=== PATIENT | male | born 1990 | race Two or more races ===

== ENCOUNTER 2024-02-15 11:09 | Outpatient (AMB) | payer OTHER, SELFPAY ==
--- NOTE | 2024-02-15 11:23 | PD.GSCLVISIT ---
Vital Signs - [facility] 02/15/24 11:25 Height 1.73 m Height Method Stated Weight 66.706 kg Weight Measurement Method Standing Scale BMI 22.3 BP 151/82 H Blood Pressure Source Automatic Cuff Blood Pressure Location Right Upper Arm Position Sitting Respiration 18 Pulse 70 Pulse Source Monitor Temp 98.6 F Temp Source Temporal Artery Scan Pulse Oximetry (%) 97 Oxygen Delivery Method Room Air Med/Allergies Allergies & Medications Allergies No Known Allergies Allergy (Unknown, Uncoded 02/15/24 11:26) Medication Reconciliation fluconazole 150 mg tablet 150 mg PO Q3D 3 doses #3 tabs 11/19/23 [Rx Confirmed 02/15/24] ketoconazole 2 % topical cream 1 applic topical BID #30 grams 11/19/23 [Rx Confirmed 02/15/24] permethrin 5 % topical cream 1 applic topical Q14D 2 doses #60 grams 11/19/23 [Rx Confirmed 02/15/24] acetaminophen 325 mg capsule (Tylenol) 650 mg (2 x 325 mg) PO TID PRN pain #20 caps 01/13/24 [Rx Confirmed 02/15/24] MA Intake Visit Data Collection New Patient or Established: Established Patient (seen at [facility] within 3 years) Reason for Visit:: REFERRAL HEMORRHOIDS Pain Present Currently: Yes Pain Location: Rectum Pain scale:: 9 Siebel Consultant Required: No PCP or OBGYN visit in last 3 months: Yes Hx Now: No Do You Feel Safe at Home: Yes Authorities Contacted: N/A Smoking Status Smoking Status: Never smoker Immunization / Flu Flu Vaccine in the Last 12 Months: No Flu Vaccine Exclusion Criteria: No Exclusion Criteria Past Medical History Past Medical History CARDIAC: Negative Cardiac Disorders RESPIRATORY: Negative Asthma GENITOURINARY: Negative Renal Disease ENDOCRINE: Negative Diabetes Mellitus Type 2 HEMATOLOGIC: Negative Sickle Cell Disease Social History SMOKING STATUS: Smoking status: Never smoker ALCOHOL: Alcohol Intake: Never HPI HPI Narrative 33M referred for perianal pain. Pt reports for the past 2 years he has been having symptoms, with perianal discomfort, occasional itching and small volume bleeding with wiping. He states his BMs tend to be regular, usually 2-3 times per day, soft and formed, not requiring any straining and only sometimes loose in nature. Additionally pt has had a rash in the area at times for which he was prescribed betamethasone by a drainage design coordinator and advised to use it for one month. Pt feels his skin in the area is becoming thinner. He denies any change in bowel habits, blood in stool, anorexia and unintentional weight loss, and has not had a colonoscopy PMH: Costochondritis PSHx: Excision of skin lesion Meds: A+D ointment Allergies: NKDA Social hx: Nonsmoker Family hx: No known malignancy ROS Review of Systems Systems Reviewed: All systems reviewed, normal except as documented Objective/Exam General General Appearance: alert, cooperative and well groomed Resp Respiratory exam: Absent respiratory distress Rectal Rectal exam: Present other (mild erythema of the perianal region, tender, no fluctuance, no drainage. No external hemorrhoids, TIKI normal, small internal hemorrhoids on anoscopy) Assessment & Plan Diagnosis / Problem List (1) Perianal dermatitis: Status: Acute Assessment & Plan: 33M referred for perianal discomfort with findings of perianal dermatitis on exam. At the moment he does not have any external hemorrhoids and his internal hemorrhoids are minimal; given his description of symptoms it seems most likely the dermatitis is the culprit. Pt had been using betamethasone cream to the area for the past month but discontinued it 3 days ago; I advised him to continue holding it and to use desitin cream daily. All questions were answered and pt is agreeable to follow up in 4 weeks Office Procedures GNS Level of Care Nursing/Assessment Patient Status: Established Patient Nursing Assessment/Reassesment: Medication Reconciliation, Update PMH in EMR and Vital Signs Coordination of Care: Complex Care and Chronic Disease 1-5, Education Complex Pt/Fam, Consent,records obtained, informed consent, Results/Orders obtained and Staff clarify orders Established Patient Charge Established Patient Point Assignment: 95 Established Patient Point Charge: EP Level 3 (80-115) Patient Portal Questionaires Social History Tobacco History Smoking Status: Never smoker Alcohol History Alcohol Intake: Never Domestic Abuse History Do You Feel Safe at Home: Yes Review of Systems Report any current symptoms Only answer those that you have currently: Past Medical History Past Medical History Have you ever been diagnosed with any of the following: Respiratory Problems Asthma: No Genital/Urinary Problems Renal Disease: No Endocrine Problems Diabetes Mellitus Type 2: No Blood Problems Sickle Cell Disease: No
[2024-02-15 11:25] VITALS: BP 151/82; PULSE 70; RESP 18; TEMP 37; O2SAT 97; BMI 22.3
== END 2024-02-15 12:19 | disposition home or self-care (01) ==
PROVIDERS: Supervising Provider Surgery; Visit Provider Surgery
DX: L30.8 Other specified dermatitis (principal); K64.8 Other hemorrhoids
CPT/HCPCS: 99213; G0463

== ENCOUNTER 2024-03-20 10:40 | Outpatient (AMB) | payer OTHER, SELFPAY ==
[2024-03-20 10:46] VITALS: BP 128/97; PULSE 80; RESP 18; TEMP 36.6; O2SAT 96; BMI 22.8
--- NOTE | 2024-03-20 10:46 | ACNOTE_ITS ---
Vital Signs 03/20/24 10:46 Height 1.7 m Height Method Stated Weight 66.281 kg Weight Measurement Method Standing Scale BMI 22.8 BP 128/97 H Blood Pressure Source Automatic Cuff Blood Pressure Location Left Upper Arm Position Sitting Respiration 18 Pulse 80 Pulse Source Monitor Temp 97.8 F Temp Source Temporal Artery Scan Pulse Oximetry (%) 96 Oxygen Delivery Method Room Air Allergies/Meds Allergies & Medications Allergies No Known Allergies Allergy (Unknown, Uncoded 03/20/24 10:47) Medication Reconciliation fluconazole 150 mg tablet 150 mg PO Q3D 3 doses #3 tabs 11/19/23 [Rx Confirmed 03/20/24] ketoconazole 2 % topical cream 1 applic topical BID #30 grams 11/19/23 [Rx Confirmed 03/20/24] permethrin 5 % topical cream 1 applic topical Q14D 2 doses #60 grams 11/19/23 [Rx Confirmed 03/20/24] acetaminophen 325 mg capsule (Tylenol) 650 mg (2 x 325 mg) PO TID PRN pain #20 caps 01/13/24 [Rx Confirmed 03/20/24] pantoprazole 40 mg tablet,delayed release 40 mg PO QDAY 1 month #30 tabs 03/20/24 [Rx] MA Intake Visit Data Collection New Patient or Established: Established Patient (seen at [facility] within 3 years) Reason for Visit:: abdominal pain x 2 months Pain Present Currently: Yes Pain Location: Abdomen Pain scale:: 4 Pain Scale Used: Byrnes-Dumont/Numerical PCP or OBGYN visit in last 3 months: No Do You Feel Safe at Home: Yes Authorities Contacted: N/A Smoking Status Smoking Status: Never smoker Immunization / Flu Flu Vaccine in the Last 12 Months: No Flu Vaccine Exclusion Criteria: No Exclusion Criteria Past Medical History Past Medical History CARDIAC: Negative Cardiac Disorders RESPIRATORY: Negative Asthma GENITOURINARY: Negative Renal Disease ENDOCRINE: Negative Diabetes Mellitus Type 2 HEMATOLOGIC: Negative Sickle Cell Disease Social History SMOKING STATUS: Smoking status: Never smoker ALCOHOL: Alcohol Intake: Never Patient Portal Questionaires Social History Tobacco History Smoking Status: Never smoker Alcohol History Alcohol Intake: Never Domestic Abuse History Do You Feel Safe at Home: Yes Review of Systems Report any current symptoms Only answer those that you have currently: Past Medical History Past Medical History Have you ever been diagnosed with any of the following: Respiratory Problems Asthma: No Genital/Urinary Problems Renal Disease: No Endocrine Problems Diabetes Mellitus Type 2: No Blood Problems Sickle Cell Disease: No History of Present Illness HPI Narrative 33-year-old male with PMHx of psoriasis, and history of costochondritis, presenting with a chief complaint of abdominal discomfort. He reports abdominal discomfort, bloating, and occasional burning sensation over the last month. Gr adual onset pain, waxes and wanes, or in the epigastrium, nonradiating, not associated with eating, without associated GI symptoms such as N/V/D/C or GI bleed. He is recently in [place] and was taken charcoal pill to help with the bloating that he has. He reports previously taking ASPIRIN for costochondritis which he stopped taking few months ago. No previous similar symptoms. Denies fever, chills, recent illnessl, headaches, dizziness, abnormal weight loss or gain, abnormal bleed, dysuria or polyuria. Objective/Exam Narrative Physical exam: GENERAL * Normal-appearing adult male, NAD HEENT * NCAT.?RENETTA. Oral mucosa is moist. Patent Nares NECK * Supple, nontender, no thyromegaly, no meningismus, no JVD, no step offs CHEST * RRR, no m/g/r * CTAB, no w/r/r. Symmetrical chest rise. No intercostal subcostal retraction * Atraumatic, nontender, no crepitus, symmetrical expansion. ABDOMEN * Soft, flat, nontender. No guarding/rebound tenderness/masses. * Bowel sounds presents EXTREMITIES * Nontender, no cyanosis, no edema * No edema/cyanosis.? SKIN * Warm and dry, no jaundice. Small psoriasis rash of left knee. NEUROMUSCULAR * No lumbar or midline, no CVA, no paraspinal muscle spasm or tenderness. * Moves all 4 extremities well, with full ROM and good CSM. * TOBAR x4, CN II-XII grossly intact. * No focal neurologic deficits. PSYCHIATRY * Normal mood and affect, cooperative, no SI or HI or hallucinations. Assessment & Plan Diagnosis / Problem List (1) Abdominal pain: Status: Acute Qualifiers: Abdominal location: epigastric Qualified Code(s): R10.13 - Epigastric pain Assessment & Plan: Patient presenting with vague abdominal pain x 1 month. Describes the pain as discomfort, not associated with meals, not associated with N/V/D/C. No abnormal weight loss, GI bleed, chest pain, shortness of breath, fever or chills. No sick exposure. No food allergies. He has tried charcoal pills that he picked up from [place] which helped with the pain. He history of NSAID use. Symptom concerning for peptic ulcer disease. Plan: ? Started OMEPRAZOLE for 1 month. ? Recommended GAS-X daily. ? Avoid foods with inflammatory properties. ? Ordered CBC to rule out bleed, CMP to rule out hepatic or renal pathology. ? Follow-up in 1 month ? Consider abdominal imaging if symptoms persist, worsen or do not improve. ? Recommended Emergency Room if symptoms persist, worsen, or new symptoms develop. (2) Psoriasis: Status: Acute Assessment & Plan: Diagnosis 6 months ago. Follows up with dermatology. Exam shows small psoriasis rash of the left knee. Plan: ? Continue using PERMETHRIN as prescribed. ? Continue follow-up with dermatology Orders: Orders Comprehensive Metabolic Panel Today K21.9 - Gastro-esophageal reflux disease without esophagitis CBC Today K21.9 - Gastro-esophageal reflux disease without esophagitis, R10.9 - Unspecified abdominal pain Calprotectin, Stool* Today K21.9 - Gastro-esophageal reflux disease without esophagitis Office Procedures [facility] Level of Care Nursing/Assessment Patient Status: Established Patient Nursing Assessment/Reassessment: Medication Reconciliation, Update PMH in EMR and Vital Signs Coordination of Care: Complex Care and Chronic Disease 1-5, Education Simp Pt/Fam and Staff clarify orders Established Patient Charge Established Patient Point Assignment: 80 Established Patient Point Charge: EP Level 3 (80-115)
== END 2024-03-20 11:28 | disposition home or self-care (01) ==
LOC: HODAHC 10:40
PROVIDERS: Supervising Provider Internal Medicine
DX: R10.13 Epigastric pain (principal)
CPT/HCPCS: 99213; G0463

== ENCOUNTER 2024-03-21 14:52 | Outpatient (AMB) | payer OTHER, SELFPAY ==
[2024-03-21 15:06] VITALS: BP 165/90; PULSE 88; RESP 19; TEMP 36.9; O2SAT 95; BMI 23.3
--- NOTE | 2024-03-21 15:06 | PD.GSCLVISIT ---
Vital Signs - [facility] 03/21/24 15:06 Height 1.7 m Height Method Stated Weight 67.302 kg Weight Measurement Method Standing Scale BMI 23.3 BP 165/90 H Blood Pressure Source Automatic Cuff Blood Pressure Location Left Upper Arm Position Sitting Respiration 19 Pulse 88 Pulse Source Monitor Temp 98.4 F Temp Source Temporal Artery Scan Pulse Oximetry (%) 95 Oxygen Delivery Method Room Air Med/Allergies Allergies & Medications Allergies No Known Allergies Allergy (Unknown, Uncoded 03/21/24 15:08) Medication Reconciliation fluconazole 150 mg tablet 150 mg PO Q3D 3 doses #3 tabs 11/19/23 [Rx Confirmed 03/21/24] ketoconazole 2 % topical cream 1 applic topical BID #30 grams 11/19/23 [Rx Confirmed 03/21/24] permethrin 5 % topical cream 1 applic topical Q14D 2 doses #60 grams 11/19/23 [Rx Confirmed 03/21/24] acetaminophen 325 mg capsule (Tylenol) 650 mg (2 x 325 mg) PO TID PRN pain #20 caps 01/13/24 [Rx Confirmed 03/21/24] pantoprazole 40 mg tablet,delayed release 40 mg PO QDAY 1 month #30 tabs 03/20/24 [Rx Confirmed 03/21/24] clotrimazole 1 % topical cream 1 applic topical BID 4 weeks #45 grams 03/21/24 [Rx] MA Intake Visit Data Collection New Patient or Established: Established Patient (seen at [facility] within 3 years) Seen by Clinical Staff ONLY (RN/MA): No Reason for Visit:: FOLLOW UP Pain Present Currently: No Plasma Center Nurse Required: No PCP or OBGYN visit in last 3 months: Yes Hx Now: No Do You Feel Safe at Home: Yes Authorities Contacted: N/A Smoking Status Smoking Status: Never smoker Immunization / Flu Flu Vaccine in the Last 12 Months: No Flu Vaccine Exclusion Criteria: No Exclusion Criteria Past Medical History Past Medical History CARDIAC: Negative Cardiac Disorders RESPIRATORY: Negative Asthma GENITOURINARY: Negative Renal Disease ENDOCRINE: Negative Diabetes Mellitus Type 2 HEMATOLOGIC: Negative Sickle Cell Disease Social History SMOKING STATUS: Smoking status: Never smoker ALCOHOL: Alcohol Intake: Never HPI HPI Narrative 33M here for follow up of perianal pain. At last visit pt reported he had stopped using clotrimazole-betamethasone creame that had been prescribed by dermatology; he was off it for a few weeks but then noted the perianal bumps, pain and itching returned so he began reapplying the cream and felt that it helped. He is additionally using nystatin powder and sometimes using lotrimin cream. In the meantime he also underwent biopsy of right lower leg lesions which came back as psoriasis, and went to his PCP for upper abdominal pain for which stool studies are pending but he began omeprazole Pt states his BMs are regular, he usually goes 1-2 times per day but sometimes 3-4, with soft BMs not requiring any straining. He does state that he sometimes feels he is passing shards of glass during defecation ROS Review of Systems Systems Reviewed: All systems reviewed, normal except as documented Objective/Exam General General Appearance: alert, cooperative and well groomed Resp Respiratory exam: Absent respiratory distress Assessment & Plan Diagnosis / Problem List (1) Perianal dermatitis: Status: Acute Assessment & Plan: 33M with several month history of perianal pain and itching, with exam findings consistent with dermatitis. Pt had been awaiting rx for clotrimazole from his clinical psychology professor, requested I resend to another pharmacy; he would also like to try compound cream for his intermittent severe perianal pain F/u in 4 weeks Office Procedures GNS Level of Care Nursing/Assessment Patient Status: Established Patient Nursing Assessment/Reassesment: Medication Reconciliation, Update PMH in EMR and Vital Signs Coordination of Care: Complex Care and Chronic Disease 1-5, Consent,records obtained, informed consent, Education Simp Pt/Fam, Results/Orders obtained and Staff clarify orders Established Patient Charge Established Patient Point Assignment: 90 Established Patient Point Charge: EP Level 3 (80-115) Patient Portal Questionaires Social History Tobacco History Smoking Status: Never smoker Alcohol History Alcohol Intake: Never Domestic Abuse History Do You Feel Safe at Home: Yes Review of Systems Report any current symptoms Only answer those that you have currently: Past Medical History Past Medical History Have you ever been diagnosed with any of the following: Respiratory Problems Asthma: No Genital/Urinary Problems Renal Disease: No Endocrine Problems Diabetes Mellitus Type 2: No Blood Problems Sickle Cell Disease: No
== END 2024-03-21 15:57 | disposition home or self-care (01) ==
LOC: HODSRG 14:52
PROVIDERS: Supervising Provider Surgery; Visit Provider Surgery
DX: L30.9 Dermatitis, unspecified (principal)
CPT/HCPCS: 99213; G0463

== ENCOUNTER → 2024-03-21 | Outpatient (CLI) | payer OTHER, SELFPAY ==
[2024-03-21 12:25] LABS: Basophils # (Auto) 0.1 Thou/mm3 (0.0-0.2); Basophils % (Auto) 1 % (0-2.5); Eosinophils % (Auto) 0 % (0-10); Hematocrit 44.6 % (41.0-53.0); Hemoglobin 15.4 g/dL (13.5-16.0); Immature Granulocytes % (Auto) 1 % (0-0); Immature Granulocytes Auto 0.07 Thou/mm3 (0.00-0.00); Lymphocytes # (Auto) 1.3 Thou/mm3 (1.0-4.8); Lymphocytes % (Auto) 14 % (10-50); Mean Corpuscular HGB Conc 34.5 g/dl (31.0-37.0); Mean Corpuscular Volume 87 fL (80-100); Monocytes # (Auto) 0.6 Thou/mm3 (0.0-0.8); Monocytes % (Auto) 6 % (0-12); Neutrophils # (Auto) 6.9 Thou/mm3 (1.8-7.7); Neutrophils % (Auto) 78 % (37-80); Nucleated Red Blood Cell % 0 /100 WBC (0); Platelet Count 242 Thou/mm3 (140-440); RDW Standard Deviation 38.5 fL (35.1-43.9); Red Blood Count 5.13 Miln/mm3 (4.50-5.90); White Blood Count 8.8 Thou/mm3 (3.8-10.6)
[2024-03-21 12:39] LABS: Alanine Aminotransferase 30 U/L (10-49); Albumin, Serum 5.1 gm/dL (3.5-5.0); Albumin/Globulin Ratio 2.2 (1.2-2.2); Alkaline Phosphatase 72 U/L (46-116); Anion Gap 8 (7-16); Aspartate Amino Transferase 28 U/L (0-34); BUN/Creatinine Ratio 21 Ratio (12-20); Bilirubin,Total 0.6 mg/dL (0.3-1.2); Blood Urea Nitrogen 19 mg/dL (9-23); Calcium 9.7 mg/dL (8.3-10.6); Calcium (Corrected) 9.7 mg/dL (8.5-10.1); Chloride 101 mMol/L (98-107); Creatinine (Component) 0.9 mg/dL (0.6-1.3); Globulin 2.3 gm/dL (2.3-3.5); Glucose 84 mg/dL (74-106); Osmolality,Calculated 276 (275-295); Potassium 4.3 mMol/L (3.4-5.1); Sodium 138 mMol/L (136-145); Total Protein 7.4 gm/dL (5.7-8.2); eGFR > 60 See Note
== END | disposition home or self-care (01) ==
LOC: COPL 11:06
PROVIDERS: PCP Student in an Organized Health Care Education/Training Program; Referring Provider Student in an Organized Health Care Education/Training Program; Visit Provider Student in an Organized Health Care Education/Training Program
DX: K21.9 Gastro-esophageal reflux disease without esophagitis (principal); R10.9 Unspecified abdominal pain
CPT/HCPCS: 36415; 80053; 85025

== ENCOUNTER → 2024-03-22 | Outpatient (CLI) | payer OTHER, SELFPAY ==
[2024-03-28 06:54] LABS: Calprotectin, Stool* 57 mcg/g
== END | disposition home or self-care (01) ==
LOC: SLDO 11:36
PROVIDERS: Referring Provider Student in an Organized Health Care Education/Training Program; Visit Provider Student in an Organized Health Care Education/Training Program
DX: K21.9 Gastro-esophageal reflux disease without esophagitis (principal)
CPT/HCPCS: 83993

== ENCOUNTER 2024-03-26 09:52 | Outpatient (AMB) | payer OTHER, SELFPAY ==
[2024-03-26 10:01] VITALS: BP 131/79; PULSE 82; RESP 18; TEMP 36.3; O2SAT 99; BMI 23.4
--- NOTE | 2024-03-26 10:01 | PD.RESCLINIC ---
Vital Signs 03/26/24 10:01 Height 1.7 m Height Method Stated Weight 67.755 kg Weight Measurement Method Standing Scale BMI 23.4 BP 131/79 H Blood Pressure Source Automatic Cuff Blood Pressure Location Left Upper Arm Position Sitting Respiration 18 Pulse 82 Pulse Source Monitor Temp 97.3 F Temp Source Oral Pulse Oximetry (%) 99 Oxygen Delivery Method Room Air Allergies/Meds Allergies & Medications Allergies No Known Allergies Allergy (Unknown, Uncoded 04/02/24 10:30) Medication Reconciliation fluconazole 150 mg tablet 150 mg PO Q3D 3 doses #3 tabs 11/19/23 [Rx Confirmed 04/02/24] ketoconazole 2 % topical cream 1 applic topical BID #30 grams 11/19/23 [Rx Confirmed 04/02/24] permethrin 5 % topical cream 1 applic topical Q14D 2 doses #60 grams 11/19/23 [Rx Confirmed 04/02/24] acetaminophen 325 mg capsule (Tylenol) 650 mg (2 x 325 mg) PO TID PRN pain #20 caps 01/13/24 [Rx Confirmed 04/02/24] pantoprazole 40 mg tablet,delayed release 40 mg PO QDAY 1 month #30 tabs 03/20/24 [Rx Confirmed 04/02/24] clotrimazole 1 % topical cream 1 applic topical BID 4 weeks #45 grams 03/21/24 [Rx Confirmed 04/02/24] MA Intake Visit Data Collection New Patient or Established: Established Patient (seen at [facility] within 3 years) Seen by Clinical Staff ONLY (RN/MA): No Pain Present Currently: No Pain scale:: 0 Pain Scale Used: Byrnes-Dumont/Numerical Sergeant Missile Crewman Required: No PCP or OBGYN visit in last 3 months: Yes Do You Feel Safe at Home: Yes Authorities Contacted: N/A Smoking Status Smoking Status: Never smoker Immunization / Flu Flu Vaccine in the Last 12 Months: No Flu Vaccine Exclusion Criteria: No Exclusion Criteria Past Medical History Past Medical History CARDIAC: Negative Cardiac Disorders RESPIRATORY: Negative Asthma GENITOURINARY: Negative Renal Disease ENDOCRINE: Negative Diabetes Mellitus Type 2 HEMATOLOGIC: Negative Sickle Cell Disease Social History SMOKING STATUS: Smoking status: Never smoker ALCOHOL: Alcohol Intake: Never Patient Portal Questionaires Social History Tobacco History Smoking Status: Never smoker Alcohol History Alcohol Intake: Never Domestic Abuse History Do You Feel Safe at Home: Yes Review of Systems Report any current symptoms Only answer those that you have currently: Past Medical History Past Medical History Have you ever been diagnosed with any of the following: Respiratory Problems Asthma: No Genital/Urinary Problems Renal Disease: No Endocrine Problems Diabetes Mellitus Type 2: No Blood Problems Sickle Cell Disease: No History of Present Illness HPI Narrative A 33-year-old male patient with past medical history of psoriasis, costochondritis, came to the clinic today due to persistent abdominal discomfort, bloating, diarrhea, for 2 months. He reported that he came previously and he was given omeprazole however it did not help with his symptoms. Patient denied any fever or chills denied any shortness of breath. Denied any bleeding per rectum however he reported that he has dermatitis in the perineal area in which she is following up with a urban forester. He reported that he was recently diagnosed with psoriasis however he mentioned that the current urban forester does not seems to be aware of his medications or knowledgeable of his condition and he requested to be transferred to another urban forester. He reported that also one of the main reasons is his perianal area was not examined in which keeps irritating him with continuous itching. In review of patient's medication he was noticed to be taking multiple ointment that contain steroids in addition to his psoriasis medications, he mentions that even though he talk to his urban forester that he is taking steroids preparations his urban forester was only focused on the psoriasis that he prescribed him and did not tell him to stop or to continue his steroid medications. Review of Systems Review of Systems Systems Reviewed: All systems reviewed, normal except as documented Objective/Exam General General Appearance: alert, in no apparent distress, comfortable, cooperative, healthy appearing, well developed and well groomed Head Head exam: atraumatic, normocephalic and normal inspection Neck Neck exam: Present normal inspection, full ROM and trachea midline Chest Chest inspection: Present normal inspection and symmetric chest wall rise Resp Respiratory exam: Present normal lung sounds bilaterally Card Cardiovascular exam: Present regular rate, normal rhythm and normal heart sounds Abdominal Abdominal exam: Present soft and normal bowel sounds Extremities Extremities exam: Present normal inspection and full ROM Back Back exam: Present normal inspection and full ROM Psych Psychiatric exam: Present normal affect and normal mood Skin Skin exam: Present warm, dry, normal color and rash (Small multiple hyperkeratotic lesions mostly on the extensor surface of the knee and ankles.) Assessment & Plan Diagnosis / Problem List (1) Psoriasis: Status: Acute Plan: ? Refer patient to another urban forester ? Avoid stress or anxiety, if needed referral to psychotherapist to decrease the risk of flares for psoriasis (2) Chronic diarrhea: Status: Acute Plan: ? ESR and CRP ? transglutaminase antibodies, Endomisial antibodies, Gliadin antibodies ? Stool Giardia, culture and sensitivity ? Stop pantoprazole (3) Abdominal pain: Status: Acute Qualifiers: Abdominal location: epigastric Qualified Code(s): R10.13 - Epigastric pain Plan: As above (4) Perianal dermatitis: Status: Acute Plan: As above, will refer the patient to urban forester. Orders: Orders hs-CRP* 03/26/24 L40.9 - Psoriasis, unspecified Gliadin (Deamidated) IgA&G* 03/26/24 K52.9 - Noninfective gastroenteritis and colitis, unspecified, L40.9 - Psoriasis, unspecified, R10.13 - Epigastric pain MARTITA IFA Screen w/refl, IFA* 03/26/24 K52.9 - Noninfective gastroenteritis and colitis, unspecified, L40.9 - Psoriasis, unspecified, R10.13 - Epigastric pain Giardia Antigen, EIA, Stool* 03/26/24 K52.9 - Noninfective gastroenteritis and colitis, unspecified, R10.13 - Epigastric pain Stool Culture 03/26/24 K52.9 - Noninfective gastroenteritis and colitis, unspecified, L40.9 - Psoriasis, unspecified, R10.13 - Epigastric pain Sed Rate (ESR) 03/26/24 L40.9 - Psoriasis, unspecified Tissue Transglutaminase Abs* 03/26/24 K52.9 - Noninfective gastroenteritis and colitis, unspecified, R10.13 - Epigastric pain Endomysial IgA w Reflx Titer* 03/26/24 K52.9 - Noninfective gastroenteritis and colitis, unspecified, L40.9 - Psoriasis, unspecified, R10.13 - Epigastric pain DNA (ds) Antibody* 03/26/24 K52.9 - Noninfective gastroenteritis and colitis, unspecified, L40.9 - Psoriasis, unspecified, R10.13 - Epigastric pain Referrals Dermatology L30.9 - Dermatitis, unspecified, L40.9 - Psoriasis, unspecified Office Procedures [facility] Level of Care Nursing/Assessment Patient Status: Established Patient Nursing Assessment/Reassessment: Medication Reconciliation, Update PMH in EMR and Vital Signs Coordination of Care: Complex Care and Chronic Disease 1-5, Consent,records obtained, informed consent, Education Simp Pt/Fam, Results/Orders obtained and Staff clarify orders Established Patient Charge Established Patient Point Assignment: 90 Established Patient Point Charge: EP Level 3 (80-115)
== END 2024-03-26 11:34 | disposition home or self-care (01) ==
LOC: HODAHC 09:52
PROVIDERS: PCP Student in an Organized Health Care Education/Training Program; Referring Provider Student in an Organized Health Care Education/Training Program; Supervising Provider Internal Medicine; Visit Provider Student in an Organized Health Care Education/Training Program
DX: L40.9 Psoriasis, unspecified (principal); K52.9 Noninfective gastroenteritis and colitis, unspecified; L30.9 Dermatitis, unspecified; R10.13 Epigastric pain
CPT/HCPCS: 99213; G0463

== ENCOUNTER → 2024-03-26 | Outpatient (CLI) | payer OTHER, SELFPAY ==
[2024-03-26 13:14] LABS: Sed Rate (ESR) 5 mm/hr (0-15)
[2024-04-05 06:56] LABS: (tTG) Ab, IgA <1.0 U/mL; (tTG) Ab, IgG <1.0 U/mL; ANA Pattern NUCLEAR, SPECKLED; ANA Screen, IFA POSITIVE (NEGATIVE); ANA Titer 1:40 titer; DNA (ds) Antibody* 2 IU/mL; Endomysial Ab IgA NEGATIVE (NEGATIVE); Gliadin(Deamidated)Ab,IgA <1.0 U/mL; Gliadin(Deamidated)Ab,IgG <1.0 U/mL; hs-CRP* 1.1 mg/L
== END | disposition home or self-care (01) ==
LOC: COPL 12:27
PROVIDERS: PCP Student in an Organized Health Care Education/Training Program; Referring Provider Student in an Organized Health Care Education/Training Program; Visit Provider Student in an Organized Health Care Education/Training Program
DX: L40.9 Psoriasis, unspecified (principal); K52.9 Noninfective gastroenteritis and colitis, unspecified; R10.13 Epigastric pain
CPT/HCPCS: 36415; 85652; 86038; 86141; 86225; 86231; 86258; 86364

== ENCOUNTER → 2024-03-27 | Outpatient (CLI) | payer OTHER, SELFPAY ==
[2024-04-01 07:00] LABS: Giardia Result NOT DETECTED
== END | disposition home or self-care (01) ==
LOC: SLDO 12:19
PROVIDERS: Referring Provider Student in an Organized Health Care Education/Training Program; Visit Provider Student in an Organized Health Care Education/Training Program
DX: K52.9 Noninfective gastroenteritis and colitis, unspecified (principal); L40.9 Psoriasis, unspecified; R10.13 Epigastric pain
CPT/HCPCS: 87015; 87045; 87046; 87329; 87899

== ENCOUNTER 2024-04-02 10:09 | Outpatient (AMB) | payer OTHER, SELFPAY ==
[2024-04-02 10:29] VITALS: BP 123/82; PULSE 90; RESP 18; TEMP 36.6; O2SAT 99; BMI 23.2
--- NOTE | 2024-04-02 10:29 | PD.RESCLINIC ---
Vital Signs 04/02/24 10:29 Height 1.7 m Height Method Stated Weight 67.188 kg Weight Measurement Method Standing Scale BMI 23.2 BP 123/82 Blood Pressure Source Automatic Cuff Blood Pressure Location Left Upper Arm Position Sitting Respiration 18 Pulse 90 Pulse Source Monitor Temp 97.8 F Temp Source Oral Pulse Oximetry (%) 99 Oxygen Delivery Method Room Air Allergies/Meds Allergies & Medications Allergies No Known Allergies Allergy (Unknown, Uncoded 04/02/24 10:30) Medication Reconciliation fluconazole 150 mg tablet 150 mg PO Q3D 3 doses #3 tabs 11/19/23 [Rx Confirmed 04/02/24] ketoconazole 2 % topical cream 1 applic topical BID #30 grams 11/19/23 [Rx Confirmed 04/02/24] permethrin 5 % topical cream 1 applic topical Q14D 2 doses #60 grams 11/19/23 [Rx Confirmed 04/02/24] acetaminophen 325 mg capsule (Tylenol) 650 mg (2 x 325 mg) PO TID PRN pain #20 caps 01/13/24 [Rx Confirmed 04/02/24] pantoprazole 40 mg tablet,delayed release 40 mg PO QDAY 1 month #30 tabs 03/20/24 [Rx Confirmed 04/02/24] clotrimazole 1 % topical cream 1 applic topical BID 4 weeks #45 grams 03/21/24 [Rx Confirmed 04/02/24] MA Intake Visit Data Collection New Patient or Established: Established Patient (seen at [facility] within 3 years) Seen by Clinical Staff ONLY (RN/MA): No Pain Present Currently: No Pain scale:: 0 Pain Scale Used: Byrnes-Dumont/Numerical Mobile Ui/Ux Designer Required: No PCP or OBGYN visit in last 3 months: Yes Hx Now: No Do You Feel Safe at Home: Yes Authorities Contacted: N/A Smoking Status Smoking Status: Never smoker Immunization / Flu Flu Vaccine in the Last 12 Months: No Flu Vaccine Exclusion Criteria: No Exclusion Criteria Past Medical History Past Medical History CARDIAC: Negative Cardiac Disorders RESPIRATORY: Negative Asthma GENITOURINARY: Negative Renal Disease ENDOCRINE: Negative Diabetes Mellitus Type 2 HEMATOLOGIC: Negative Sickle Cell Disease Social History SMOKING STATUS: Smoking status: Never smoker ALCOHOL: Alcohol Intake: Never Patient Portal Questionaires Social History Tobacco History Smoking Status: Never smoker Alcohol History Alcohol Intake: Never Domestic Abuse History Do You Feel Safe at Home: Yes Review of Systems Report any current symptoms Only answer those that you have currently: Past Medical History Past Medical History Have you ever been diagnosed with any of the following: Respiratory Problems Asthma: No Genital/Urinary Problems Renal Disease: No Endocrine Problems Diabetes Mellitus Type 2: No Blood Problems Sickle Cell Disease: No History of Present Illness HPI Narrative A 33-year-old male patient with past medical history of psoriasis, costochondritis, came to the clinic today due to persistent abdominal discomfort, bloating, diarrhea, for 2 months. He reported that he came previously and he was given omeprazole however it did not help with his symptoms. Patient denied any fever or chills denied any shortness of breath. Denied any bleeding per rectum however he reported that he has dermatitis in the perineal area in which she is following up with a legal administrative assistant. He reported that he was recently diagnosed with psoriasis however he mentioned that the current legal administrative assistant does not seems to be aware of his medications or knowledgeable of his condition and he requested to be transferred to another legal administrative assistant. He reported that also one of the main reasons is his perianal area was not examined in which keeps irritating him with continuous itching. In review of patient's medication he was noticed to be taking multiple ointment that contain steroids in addition to his psoriasis medications, he mentions that even though he talk to his legal administrative assistant that he is taking steroids preparations his legal administrative assistant was only focused on the psoriasis that he prescribed him and did not tell him to stop or to continue his steroid medications. 04/02/2024, patient was seen and examined at the office. Patient came today for labs follow-up. His stool culture and sensitivity came back negative for any pathological bacteria or E. coli. ESR came back 5 CRP still pending. Calprotectin came back at 57 which is undetermined. Patient reported that his abdominal symptoms has somehow improved after he stopped taking the topical psoriasis medications. He reported that his bloating has improved however his frequent bowel movements still the same and he still has 3 or more bowel movements per day. He reported that even these symptoms has not improved however his bloating and abdominal discomfort has improved after he stopped the topical psoriasis medications. He still waiting for appointment with his new legal administrative assistant. Review of Systems Review of Systems Systems Reviewed: All systems reviewed, normal except as documented Objective/Exam General General Appearance: alert, in no apparent distress, comfortable, cooperative, healthy appearing, well developed and well groomed Head Head exam: atraumatic, normocephalic and normal inspection Neck Neck exam: Present normal inspection, full ROM and trachea midline Chest Chest inspection: Present normal inspection and symmetric chest wall rise Resp Respiratory exam: Present normal lung sounds bilaterally Card Cardiovascular exam: Present regular rate, normal rhythm and normal heart sounds Abdominal Abdominal exam: Present soft and normal bowel sounds Extremities Extremities exam: Present normal inspection and full ROM Back Back exam: Present normal inspection and full ROM Psych Psychiatric exam: Present normal affect and normal mood Skin Skin exam: Present warm, dry, normal color and rash (Small multiple hyperkeratotic lesions mostly on the extensor surface of the knee and ankles.) Assessment & Plan Diagnosis / Problem List (1) Psoriasis: Status: Acute Plan: ? Refer patient to a new legal administrative assistant in [place] ? Recommended the patient to continue his psoriasis medications topical once, however decrease the amount of the applied ointment and foam. ? Patient reported that he has been washing his hand and using gloves whenever he applies the cream and the phone. ? Instructed the patient to speak with his legal administrative assistant for other options for psoriasis medications if he believes that these are the cause of the symptoms until we get the final results for the immunological studies. (2) Chronic diarrhea: Status: Acute Assessment & Plan: ESR came back at 5 mg, ? Stool culture and sensitivity came back negative Giardia came back negative Calprotectin came back 57 which is undetermined Plan: ? Follow-up on the immunological study for celiac disease ? Follow-up on the CRP ? Follow-up on the [id number] antibodies ? If all results came back negative and the patient still have multiple episodes of diarrhea we may consider colonoscopy or referral to GI specialist. ? Patient reported that he has been washing his hand and using gloves whenever he applies the cream and the phone. ? Instructed the patient to speak with his legal administrative assistant for other options for psoriasis medications if he believes that these are the cause of the symptoms until we get the final results for the immunological studies. (3) Abdominal pain: Status: Acute Qualifiers: Abdominal location: epigastric Qualified Code(s): R10.13 - Epigastric pain Plan: As above (4) Perianal dermatitis: Status: Acute Plan: Pending appointment with a legal administrative assistant. Office Procedures [facility] Level of Care Nursing/Assessment Patient Status: Established Patient Nursing Assessment/Reassessment: Medication Reconciliation, Update PMH in EMR and Vital Signs Coordination of Care: Complex Care and Chronic Disease 1-5, Consent,records obtained, informed consent, Education Simp Pt/Fam, Results/Orders obtained and Staff clarify orders Established Patient Charge Established Patient Point Assignment: 90 Established Patient Point Charge: EP Level 3 (80-115)
== END 2024-04-02 11:27 | disposition home or self-care (01) ==
LOC: HODAHC 10:09
PROVIDERS: Supervising Provider Internal Medicine; Visit Provider Student in an Organized Health Care Education/Training Program
DX: L40.9 Psoriasis, unspecified (principal); K52.9 Noninfective gastroenteritis and colitis, unspecified; L30.9 Dermatitis, unspecified
CPT/HCPCS: 99213; G0463

== ENCOUNTER 2024-04-16 10:31 | Outpatient (AMB) | payer OTHER, SELFPAY ==
--- NOTE | 2024-04-16 10:34 | PD.RESCLINIC ---
Allergies/Meds Allergies & Medications Allergies No Known Allergies Allergy (Unknown, Uncoded 04/02/24 10:30) Medication Reconciliation fluconazole 150 mg tablet 150 mg PO Q3D 3 doses #3 tabs 11/19/23 [Rx Confirmed 04/16/24] ketoconazole 2 % topical cream 1 applic topical BID #30 grams 11/19/23 [Rx Confirmed 04/16/24] permethrin 5 % topical cream 1 applic topical Q14D 2 doses #60 grams 11/19/23 [Rx Confirmed 04/16/24] acetaminophen 325 mg capsule (Tylenol) 650 mg (2 x 325 mg) PO TID PRN pain #20 caps 01/13/24 [Rx Confirmed 04/16/24] pantoprazole 40 mg tablet,delayed release 40 mg PO QDAY 1 month #30 tabs 03/20/24 [Rx Confirmed 04/16/24] clotrimazole 1 % topical cream 1 applic topical BID 4 weeks #45 grams 03/21/24 [Rx Confirmed 04/16/24] MA Intake Visit Data Collection New Patient or Established: Established Patient (seen at [facility] within 3 years) Seen by Clinical Staff ONLY (RN/MA): No Pain Present Currently: No Pain Scale Used: Byrnes-Dumont/Numerical Hvac Operations Technician Required: No PCP or OBGYN visit in last 3 months: Yes Hx Now: No Do You Feel Safe at Home: Yes Authorities Contacted: N/A Smoking Status Smoking Status: Never smoker For Televisit only Telemed Video/Phone Visit: Yes Telemed Video/Phone visit w/Clinical Staff: 21-30 min Immunization / Flu Flu Vaccine in the Last 12 Months: No Flu Vaccine Exclusion Criteria: No Exclusion Criteria Past Medical History Past Medical History CARDIAC: Negative Cardiac Disorders RESPIRATORY: Negative Asthma GENITOURINARY: Negative Renal Disease ENDOCRINE: Negative Diabetes Mellitus Type 2 HEMATOLOGIC: Negative Sickle Cell Disease Social History SMOKING STATUS: Smoking status: Never smoker ALCOHOL: Alcohol Intake: Never Patient Portal Questionaires Social History Tobacco History Smoking Status: Never smoker Alcohol History Alcohol Intake: Never Domestic Abuse History Do You Feel Safe at Home: Yes Review of Systems Report any current symptoms Only answer those that you have currently: Past Medical History Past Medical History Have you ever been diagnosed with any of the following: Respiratory Problems Asthma: No Genital/Urinary Problems Renal Disease: No Endocrine Problems Diabetes Mellitus Type 2: No Blood Problems Sickle Cell Disease: No History of Present Illness HPI Narrative A tele-visit was conducted to review patients Labs, His Celiac screening tests came back -ve, ESR WNL, Stool C/S came back negative for pathogenic bacteria, and it was negative for Giardia. Patient reported that he has avoided gluten contating productes however still has the same. No family hx of GI cancer, however he reported that has has been losing weight over the past few years and went down from 180 to 150IbL. Review of Systems Review of Systems Systems Reviewed: All systems reviewed, normal except as documented Objective/Exam Narrative Physical exam: N/A Assessment & Plan Diagnosis / Problem List (1) Chronic diarrhea: Status: Acute Plan: - Gi Referral to Dr Beatty. (2) GERD (gastroesophageal reflux disease): Status: Acute Qualifiers: Esophagitis presence: esophagitis presence not specified Qualified Code(s): K21.9 - Gastro-esophageal reflux disease without esophagitis (3) Abdominal pain: Status: Acute Qualifiers: Abdominal location: epigastric Qualified Code(s): R10.13 - Epigastric pain Orders: Referrals Gastroenterology K21.9 - Gastro-esophageal reflux disease without esophagitis, K52.9 - Noninfective gastroenteritis and colitis, unspecified, R10.13 - Epigastric pain Additional Assessment Internal Medicine Attending Note: Case discussed with and agree with note and management plan of Resident Physician as per Resident's Note above. Issues of concern for present visit are as follows: Telehealth visit for review of labs. Workup to this point has been essentially negative. Celiac panel negative. Stool cultures negative. Sedimentation rate normal. Patient empirically tried eliminating gluten from his diet but is still noting same bowel symptoms. Patient's weight loss over the last year noted. Referral made to gastroenterology for further workup of chronic diarrhea. [place] MD Physician Billing Established Patient Established Patient: E/M Level 2-CPT 11068 Office Procedures [facility] Level of Care Nursing/Assessment Patient Status: Established Patient Nursing Assessment/Reassessment: Medication Reconciliation and Update PMH in EMR Coordination of Care: Complex Care and Chronic Disease 1-5, Consent,records obtained, informed consent, Education Simp Pt/Fam and Staff clarify orders Established Patient Charge Established Patient Point Assignment: 70 Telehealth Telemed Phone/Video with patient at home & Dr,PA,STEAM BOX OPERATOR: Yes
== END 2024-04-16 11:15 | disposition home or self-care (01) ==
LOC: HODAHC 10:31
PROVIDERS: PCP Student in an Organized Health Care Education/Training Program; Referring Provider Student in an Organized Health Care Education/Training Program; Supervising Provider Internal Medicine; Visit Provider Student in an Organized Health Care Education/Training Program
DX: Z71.2 Person consulting for explanation of examination or test findings (principal); K21.9 Gastro-esophageal reflux disease without esophagitis; K52.9 Noninfective gastroenteritis and colitis, unspecified
CPT/HCPCS: 99212; G0463

== ENCOUNTER → 2024-04-22 | Outpatient (CLI) | payer OTHER, SELFPAY | END | disposition home or self-care (01) | PROVIDERS: PCP Student in an Organized Health Care Education/Training Program; Referring Provider Dermatology MOHS-Micrographic Surgery; Visit Provider Dermatology MOHS-Micrographic Surgery | DX: L40.0 Psoriasis vulgaris (principal); Z79.899 Other long term (current) drug therapy ==

== ENCOUNTER → 2024-04-23 | Outpatient (CLI) | payer OTHER, SELFPAY ==
[2024-04-23 10:31] LABS: Quantiferon-TB* See Sep Rpt
== END | disposition home or self-care (01) ==
LOC: COPL 10:06
PROVIDERS: PCP Student in an Organized Health Care Education/Training Program; Referring Provider Dermatology MOHS-Micrographic Surgery; Visit Provider Dermatology MOHS-Micrographic Surgery
DX: L40.0 Psoriasis vulgaris (principal); Z79.899 Other long term (current) drug therapy
CPT/HCPCS: 86480

== ENCOUNTER 2024-06-25 10:26 | Outpatient (AMB) | payer OTHER, SELFPAY ==
[2024-06-25 10:41] VITALS: BP 136/78; PULSE 76; RESP 16; TEMP 36.6; O2SAT 98; BMI 22.3
--- NOTE | 2024-06-25 10:41 | PD.RESCLINIC ---
Vital Signs 06/25/24 10:41 Height 1.7 m Height Method Stated Weight 64.467 kg Weight Measurement Method Standing Scale BMI 22.3 BP 136/78 H Blood Pressure Source Automatic Cuff Blood Pressure Location Left Upper Arm Position Sitting Respiration 16 Pulse 76 Pulse Source Monitor Temp 97.8 F Temp Source Temporal Artery Scan Pulse Oximetry (%) 98 Oxygen Delivery Method Room Air Allergies/Meds Allergies & Medications Allergies No Known Allergies Allergy (Unknown, Uncoded 06/25/24 10:42) Medication Reconciliation fluconazole 150 mg tablet 150 mg PO Q3D 3 doses #3 tabs 11/19/23 [Rx Confirmed 06/25/24] ketoconazole 2 % topical cream 1 applic topical BID #30 grams 11/19/23 [Rx Confirmed 06/25/24] permethrin 5 % topical cream 1 applic topical Q14D 2 doses #60 grams 11/19/23 [Rx Confirmed 06/25/24] acetaminophen 325 mg capsule (Tylenol) 650 mg (2 x 325 mg) PO TID PRN pain #20 caps 01/13/24 [Rx Confirmed 06/25/24] clotrimazole 1 % topical cream 1 applic topical BID 4 weeks #45 grams 03/21/24 [Rx Confirmed 06/25/24] clobetasol 0.05 % scalp solution 1 applic topical QDAY 2 weeks #25 mL 06/25/24 [Rx] dicyclomine 10 mg capsule 10 mg PO TID PRN abdominal pain #30 caps 06/25/24 [Rx] pantoprazole 40 mg tablet,delayed release 40 mg PO QDAY #30 tabs 06/25/24 [Rx] MA Intake Visit Data Collection New Patient or Established: Established Patient (seen at [facility] within 3 years) Seen by Clinical Staff ONLY (RN/MA): No Pain Present Currently: No Pain scale:: 0 Pain Scale Used: Byrnes-Dumont/Numerical Developer [employer] Required: No PCP or OBGYN visit in last 3 months: No Hx Now: No Do You Feel Safe at Home: Yes Authorities Contacted: N/A Smoking Status Smoking Status: Never smoker Immunization / Flu Flu Vaccine in the Last 12 Months: No Flu Vaccine Exclusion Criteria: No Exclusion Criteria Past Medical History Past Medical History CARDIAC: Negative Cardiac Disorders RESPIRATORY: Negative Asthma GENITOURINARY: Negative Renal Disease ENDOCRINE: Negative Diabetes Mellitus Type 2 HEMATOLOGIC: Negative Sickle Cell Disease Social History SMOKING STATUS: Smoking status: Never smoker ALCOHOL: Alcohol Intake: Never Patient Portal Shania Social History Tobacco History Smoking Status: Never smoker Alcohol History Alcohol Intake: Never Domestic Abuse History Do You Feel Safe at Home: Yes Review of Systems Report any current symptoms Only answer those that you have currently: Past Medical History Past Medical History Have you ever been diagnosed with any of the following: Respiratory Problems Asthma: No Genital/Urinary Problems Renal Disease: No Endocrine Problems Diabetes Mellitus Type 2: No Blood Problems Sickle Cell Disease: No History of Present Illness HPI Narrative A 33-year-old male patient with past medical history of psoriasis, costochondritis, came to the clinic today due to persistent abdominal discomfort, bloating, diarrhea, for 2 months. He reported that he came previously and he was given omeprazole however it did not help with his symptoms. Patient denied any fever or chills denied any shortness of breath. Denied any bleeding per rectum however he reported that he has dermatitis in the perineal area in which she is following up with a wheel filler. He reported that he was recently diagnosed with psoriasis however he mentioned that the current wheel filler does not seems to be aware of his medications or knowledgeable of his condition and he requested to be transferred to another wheel filler. He reported that also one of the main reasons is his perianal area was not examined in which keeps irritating him with continuous itching. In review of patient's medication he was noticed to be taking multiple ointment that contain steroids in addition to his psoriasis medications, he mentions that even though he talk to his wheel filler that he is taking steroids preparations his wheel filler was only focused on the psoriasis that he prescribed him and did not tell him to stop or to continue his steroid medications. 04/02/2024, patient was seen and examined at the office. Patient came today for labs follow-up. His stool culture and sensitivity came back negative for any pathological bacteria or E. coli. ESR came back 5 CRP still pending. Calprotectin came back at 57 which is undetermined. Patient reported that his abdominal symptoms has somehow improved after he stopped taking the topical psoriasis medications. He reported that his bloating has improved however his frequent bowel movements still the same and he still has 3 or more bowel movements per day. He reported that even these symptoms has not improved however his bloating and abdominal discomfort has improved after he stopped the topical psoriasis medications. He still waiting for appointment with his new wheel filler. 04/16/2024 A tele-visit was conducted to review patients Labs, His Celiac screening tests came back -ve, ESR WNL, Stool C/S came back negative for pathogenic bacteria, and it was negative for Giardia. Patient reported that he has avoided gluten contating productes however still has the same. No family hx of GI cancer, however he reported that has has been losing weight over the past few years and went down from 180 to 150IbL. 06/25/2024, patient came for follow-up for his GI symptoms. Patient reported significant improvement of his recurrent bowel movements, and he states he only has 1 BM per day. However, patient still complains of episodes mild epigastric abdominal pain, and also left-sided abdominal pain. On further questioning patient reported that he has some episodes of mouth ulcers that is very mild. patient denied any nausea or vomiting. He reported also significant improvement of his perianal itching he seen his GI specialist for the chronic abdominal pain and diarrhea. EGD and colonoscopy was done to rule out any malignancy or inflammatory bowel disorder. EGD was negative for any mass or ulcers however it showed mild antral inflammatory changes. Biopsy was taken and it was negative for any malignancy. Colonoscopy similarly was negative for any ulcers or masses. The GI specialist mentioned that we cannot rule out inflammatory bowel disease as the patient was started on Tremfya for his psoriasis which is also can affect the colonoscopy and the biopsy picture. His container crane operator also recommended for him to obtain supplemental enzymes in which he mention history and some improvement after he taking his enzymes. The patient reported that his wheel filler recommended him to continue on TREMFYA only for 4 doses. For that reason, we will keep monitoring the patient if he continue to experience GI symptoms and we may consider another referral to the GI for repeat colonoscopy if needed. Review of Systems Review of Systems Systems Reviewed: All systems reviewed, normal except as documented Objective/Exam General General Appearance: alert, in no apparent distress, comfortable, cooperative, healthy appearing, well developed and well groomed Head Head exam: atraumatic, normocephalic and normal inspection Exp ENT Mouth exam: Present normal external inspection Neck Neck exam: Present normal inspection, full ROM and trachea midline Chest Chest inspection: Present normal inspection and symmetric chest wall rise Resp Respiratory exam: Present normal lung sounds bilaterally Card Cardiovascular exam: Present regular rate, normal rhythm and normal heart sounds Abdominal Abdominal exam: Present soft and normal bowel sounds Extremities Extremities exam: Present normal inspection and full ROM Back Back exam: Present normal inspection and full ROM Psych Psychiatric exam: Present normal affect and normal mood Skin Skin exam: Present warm, dry, normal color and rash (Small multiple hyperkeratotic lesions mostly on the extensor surface of the knee and ankles.) Assessment & Plan Diagnosis / Problem List (1) Chronic diarrhea: Status: Acute Assessment & Plan: GI specialist for the chronic abdominal pain and diarrhea. EGD and colonoscopy was done to rule out any malignancy or inflammatory bowel disorder. EGD was negative for any mass or ulcers however it showed mild antral inflammatory changes. Biopsy was taken and it was negative for any malignancy. Colonoscopy similarly was negative for any ulcers or masses. The GI specialist mentioned that we cannot rule out inflammatory bowel disease as the patient was started on Tremfya for his psoriasis which is also can affect the colonoscopy and the biopsy picture. His container crane operator also recommended for him to obtain supplemental enzymes in which he mention history and some improvement after he taking his enzymes. The patient reported that his wheel filler recommended him to continue on TREMFYA only for 4 doses. For that reason, we will keep monitoring the patient if he continue to experience GI symptoms and we may consider another referral to the GI for repeat colonoscopy if needed. Plan: ? Continue the digestive enzymes as prescribed by the GI specialist ? Will continue to monitor symptoms, may repeat another colonoscopy if his symptoms worsen due to the possible masking of his GI symptoms by the Guselkumab that was started by his wheel filler. (2) Abdominal pain: Status: Acute Qualifiers: Abdominal location: epigastric Qualified Code(s): R10.13 - Epigastric pain Assessment & Plan: Patient continued to experience epigastric abdominal pain with no radiation, last for few hours and then disappear by itself. Imaging that sometimes comes can help with the symptoms. He mentions also that the pain sometimes can be on the left side with radiation. Plan: ? Start the patient on pantoprazole 40 mg IV for 8 weeks trial ? Start the patient on Bentyl 10 mg p.o. 3 times daily before meals trial with abdominal pain ? Abdominal ultrasound to rule out gallbladder stones ?Follow-up after 2 weeks televisit to reassess symptoms and also to discuss ultrasound results if done. (3) Psoriasis: Status: Acute Plan: ? Refill clobetasol topical solution for 2 weeks ? Recommend the patient follow-up with me wheel filler psoriasis treatment Orders: Orders US abdomen 1 Week K52.9 - Noninfective gastroenteritis and colitis, unspecified, R10.13 - Epigastric pain Additional Assessment Internal Medicine Attending Note: Case discussed with and agree with note and management plan of Resident Physician as per Resident's Note above. Issues of concern for present visit are as follows: Follow-up visit. History of chronic abdominal pain and diarrhea. He has had improvement in the number of bowel movements, down to only 1 bowel movement per day, but still episodic mild epigastric abdominal pain and left-sided abdominal pain. He did see gastroenterology. EGD and colonoscopy were done to rule out malignancy or IBD. Both were negative. Patient was started on Tremfya for psoriasis, this may have treated any IBD to some degree which may have affected the biopsies. Patient is taking supplemental digestive enzymes per the recommendation of his container crane operator which seem to have helped. We will continue to monitor patient to see if he has further improvement of his abdominal symptoms with Tremfya. Tax Intern is going to keep him on this for a total of 4 doses and then reevaluate. Given continued episodic abdominal pain, we will check an ultrasound of the abdomen. [place] MD Physician Billing Established Patient Established Patient: E/M Level 3-CPT 85579 Office Procedures [facility] Level of Care Nursing/Assessment Patient Status: Established Patient Nursing Assessment/Reassessment: Medication Reconciliation, Update PMH in EMR and Vital Signs Coordination of Care: Complex Care and Chronic Disease 1-5, Consent,records obtained, informed consent, Education Simp Pt/Fam, Results/Orders obtained and Staff clarify orders Established Patient Charge Established Patient Point Assignment: 90 Established Patient Point Charge: EP Level 3 (80-115)
== END 2024-06-25 11:22 | disposition home or self-care (01) ==
LOC: HODAHC 10:26
PROVIDERS: PCP Student in an Organized Health Care Education/Training Program; Referring Provider Student in an Organized Health Care Education/Training Program; Supervising Provider Internal Medicine; Visit Provider Student in an Organized Health Care Education/Training Program
DX: K52.9 Noninfective gastroenteritis and colitis, unspecified (principal); R10.13 Epigastric pain; L40.9 Psoriasis, unspecified
CPT/HCPCS: 99213; G0463

== ENCOUNTER → 2024-07-04 | Outpatient (CLI) | payer OTHER, SELFPAY ==
--- NOTE | 2024-07-04 11:45 | XR_ITS ---
Examination: Abdomen sonogram, complete Date and time of exam: July 04, 2024 1147 hours INDICATIONS: Diarrhea abdominal pain beginning 3 months ago. Technique: Multiple real-time grayscale transabdominal sonographic images of the abdomen have been obtained. Findings: Normal gallbladder Normal common bile duct 0.2 cm Pancreatic head 1.8 cm Aorta not enlarged Liver 11.4 cm no focal liver lesions Normal hepatopedal portal venous flow Patent IVC Right kidney 10.1 cm cortex 1.1 cm Left kidney 10.1 cm cortex 2.3 cm Spleen 8 cm IMPRESSION: Normal gallbladder Normal liver No hydronephrosis or renal calculi
== END | disposition home or self-care (01) ==
LOC: CDIM 11:21
PROVIDERS: PCP Student in an Organized Health Care Education/Training Program; Referring Provider Student in an Organized Health Care Education/Training Program; Visit Provider Student in an Organized Health Care Education/Training Program
DX: K52.9 Noninfective gastroenteritis and colitis, unspecified (principal)
CPT/HCPCS: 76700

== ENCOUNTER 2024-07-09 10:26 | Outpatient (AMB) | payer OTHER, SELFPAY ==
--- NOTE | 2024-07-09 10:30 | PD.RESCLINIC ---
Allergies/Meds Allergies & Medications Allergies No Known Allergies Allergy (Unknown, Uncoded 07/09/24 10:30) Medication Reconciliation fluconazole 150 mg tablet 150 mg PO Q3D 3 doses #3 tabs 11/19/23 [Rx Confirmed 07/09/24] ketoconazole 2 % topical cream 1 applic topical BID #30 grams 11/19/23 [Rx Confirmed 07/09/24] permethrin 5 % topical cream 1 applic topical Q14D 2 doses #60 grams 11/19/23 [Rx Confirmed 07/09/24] acetaminophen 325 mg capsule (Tylenol) 650 mg (2 x 325 mg) PO TID PRN pain #20 caps 01/13/24 [Rx Confirmed 07/09/24] clotrimazole 1 % topical cream 1 applic topical BID 4 weeks #45 grams 03/21/24 [Rx Confirmed 07/09/24] pantoprazole 40 mg tablet,delayed release 40 mg PO QDAY #30 tabs 06/25/24 [Rx Confirmed 07/09/24] dicyclomine 10 mg capsule 10 mg PO TID PRN abdominal pain #30 caps 07/09/24 [Rx] [id number] 36,000-114,000-180,000 unit capsule,delay rel (Creon) 1 cap PO TID #30 caps 07/09/24 [Rx] MA Intake Visit Data Collection New Patient or Established: Established Patient (seen at [facility] within 3 years) Seen by Clinical Staff ONLY (RN/KAMALJIT): No Pain Present Currently: No Pain scale:: 0 Pain Scale Used: Byrnes-Dumont/Numerical Securities Attorney Required: No PCP or OBGYN visit in last 3 months: No Hx Now: No Do You Feel Safe at Home: Yes Authorities Contacted: N/A Smoking Status Smoking Status: Never smoker For Televisit only Telemed Video/Phone Visit: Yes Verbal consent obtained for Telemed visit?: Yes Verbal Consent witness name: JAYJAY AGUILA MA Telemed Video/Phone visit w/Clinical Staff: 21-30 min Immunization / Flu Flu Vaccine in the Last 12 Months: No Flu Vaccine Exclusion Criteria: No Exclusion Criteria Past Medical History Past Medical History CARDIAC: Negative Cardiac Disorders RESPIRATORY: Negative Asthma GENITOURINARY: Negative Renal Disease ENDOCRINE: Negative Diabetes Mellitus Type 2 HEMATOLOGIC: Negative Sickle Cell Disease Social History SMOKING STATUS: Smoking status: Never smoker ALCOHOL: Alcohol Intake: Never Patient Portal Questionaires Social History Tobacco History Smoking Status: Never smoker Alcohol History Alcohol Intake: Never Domestic Abuse History Do You Feel Safe at Home: Yes Review of Systems Report any current symptoms Only answer those that you have currently: Past Medical History Past Medical History Have you ever been diagnosed with any of the following: Respiratory Problems Asthma: No Genital/Urinary Problems Renal Disease: No Endocrine Problems Diabetes Mellitus Type 2: No Blood Problems Sickle Cell Disease: No History of Present Illness HPI Narrative A 33-year-old male patient with past medical history of psoriasis, costochondritis, came to the clinic today due to persistent abdominal discomfort, bloating, diarrhea, for 2 months. He reported that he came previously and he was given omeprazole however it did not help with his symptoms. Patient denied any fever or chills denied any shortness of breath. Denied any bleeding per rectum however he reported that he has dermatitis in the perineal area in which she is following up with a crystal growing technician. He reported that he was recently diagnosed with psoriasis however he mentioned that the current crystal growing technician does not seems to be aware of his medications or knowledgeable of his condition and he requested to be transferred to another crystal growing technician. He reported that also one of the main reasons is his perianal area was not examined in which keeps irritating him with continuous itching. In review of patient's medication he was noticed to be taking multiple ointment that contain steroids in addition to his psoriasis medications, he mentions that even though he talk to his crystal growing technician that he is taking steroids preparations his crystal growing technician was only focused on the psoriasis that he prescribed him and did not tell him to stop or to continue his steroid medications. 04/02/2024, patient was seen and examined at the office. Patient came today for labs follow-up. His stool culture and sensitivity came back negative for any pathological bacteria or E. coli. ESR came back 5 CRP still pending. Calprotectin came back at 57 which is undetermined. Patient reported that his abdominal symptoms has somehow improved after he stopped taking the topical psoriasis medications. He reported that his bloating has improved however his frequent bowel movements still the same and he still has 3 or more bowel movements per day. He reported that even these symptoms has not improved however his bloating and abdominal discomfort has improved after he stopped the topical psoriasis medications. He still waiting for appointment with his new crystal growing technician. 04/16/2024 A tele-visit was conducted to review patients Labs, His Celiac screening tests came back -ve, ESR WNL, Stool C/S came back negative for pathogenic bacteria, and it was negative for Giardia. Patient reported that he has avoided gluten contating productes however still has the same. No family hx of GI cancer, however he reported that has has been losing weight over the past few years and went down from 180 to 150IbL. 06/25/2024, patient came for follow-up for his GI symptoms. Patient reported significant improvement of his recurrent bowel movements, and he states he only has 1 BM per day. However, patient still complains of episodes mild epigastric abdominal pain, and also left-sided abdominal pain. On further questioning patient reported that he has some episodes of mouth ulcers that is very mild. patient denied any nausea or vomiting. He reported also significant improvement of his perianal itching he seen his GI specialist for the chronic abdominal pain and diarrhea. EGD and colonoscopy was done to rule out any malignancy or inflammatory bowel disorder. EGD was negative for any mass or ulcers however it showed mild antral inflammatory changes. Biopsy was taken and it was negative for any malignancy. Colonoscopy similarly was negative for any ulcers or masses. The GI specialist mentioned that we cannot rule out inflammatory bowel disease as the patient was started on Tremfya for his psoriasis which is also can affect the colonoscopy and the biopsy picture. His manufacturing test technician also recommended for him to obtain supplemental enzymes in which he mention history and some improvement after he taking his enzymes. The patient reported that his crystal growing technician recommended him to continue on TREMFYA only for 4 doses. For that reason, we will keep monitoring the patient if he continue to experience GI symptoms and we may consider another referral to the GI for repeat colonoscopy if needed. 07/09/2024, A follow up visit to discuss the US abdomen results and follow up on his sx after he was started on pantoprazol and bentyl. His US was within normal limits, His sx has significantly improved and he is asking for a refill for the bentyl and pantoprazol. He also informed that he ran out of his digetsive enzyemes supplements that was prescribed by the GI specialist in which it helped him significantly. Review of Systems Review of Systems Systems Reviewed: All systems reviewed, normal except as documented Objective/Exam Narrative Physical exam: N/A Assessment & Plan Diagnosis / Problem List (1) Chronic diarrhea: Status: Acute (2) Abdominal pain: Status: Acute Qualifiers: Abdominal location: epigastric Qualified Code(s): R10.13 - Epigastric pain Additional Plan - refill Creon 36.000U TID - Refil Bentyl - will re-assess the need to contimue pantoprazol after one month. - Will keep close monitiring. Office Procedures [facility] Level of Care Nursing/Assessment Patient Status: Established Patient Nursing Assessment/Reassessment: Medication Reconciliation and Update PMH in EMR Coordination of Care: Complex Care and Chronic Disease 1-5, Consent,records obtained, informed consent, Education Simp Pt/Fam and Staff clarify orders Established Patient Charge Established Patient Point Assignment: 70 Telehealth Telemed Phone/Video with patient at home & Dr,PA,RRT: Yes
== END 2024-07-09 11:30 | disposition home or self-care (01) ==
LOC: HODAHC 10:26
PROVIDERS: PCP Student in an Organized Health Care Education/Training Program; Referring Provider Student in an Organized Health Care Education/Training Program; Supervising Provider Internal Medicine; Visit Provider Student in an Organized Health Care Education/Training Program
DX: K52.9 Noninfective gastroenteritis and colitis, unspecified (principal); Z71.2 Person consulting for explanation of examination or test findings
CPT/HCPCS: 99212; 99213; G0463